=== PATIENT | female | born 1990 | race African-American/Black ===

== ENCOUNTER 2019-06-17 00:57 | Inpatient (IN) | payer OTHER ==
--- NOTE | 2019-06-17 04:39 | PN ---
L&D Outpatient: Visit - Reproductive Information Estimated Due Date: 06/22/19 Gestational Age: 39 Weeks and 2 Days : 1 Para: 0 - Reason for Visit Visit Reason: Pt reports ctx starting around 1730 and increasing in frequency and intensity over time. Denies LOF. Reports active FM. - Antepartal Records Antepartal Record: Reviewed, Complicated by: - HSV outbreak at 29 weeks, Rh negative, GBS bacteriuria - Patient History Patient History Significant: Yes Patient History Significant For: asthma, depression/ anxiety Review of Systems Constitutional: Uncomfortable CV Complaint: No Respiratory: Shortness of Breath: No Gastrointestinal: Normal Bowel Movement, Nausea Genitourinary: No Dysuria, No Bleeding, No Leaking Fluid Musculoskeletal: No Epigastric Pain, Back Pain, Contractions Neurological: No Headache, No Visual Changes Movement: Normal L&D Outpatient: Exam Vitals - Most Recent: Temp- 97.6, P-81, R-20, BP-130/70 - Cervical Exam Cervical Exam: 1-2cm/ 80%/ -2/ vtx/ soft - Abdominal Exam Abdomen Exam: Non-Tender, Fundal Height Consistent with Dates - Membranes Membrane Status: Intact - Ultrasound/Biophysical Profile Ultrasound Status: Not Done EFM Findings - External Monitor Findings Baseline Heart Rate: 140 External Monitor Findings: Accelerations Present, Variability Moderate, Baseline Stable Contractions: Regular, Mild, Moderate, 45-90 Seconds Contraction Frequency: 2-4 minutes L&D Outpatient: Asses/Plan Assessment: 28 year old at 39 2/7 weeks gestation in early vs prodromal labor. No evidence of acidemia, membranes intact. Hx GBS bacteriuria. - Discharge Diagnosis Discharge Diagnosis: Supervision-Normal Preg Plan: Continue Observation - Pt appears to be in labor, but has not made a lot of cervical change yet. Will recheck in a couple hours or as needed, defer admission and initiation of GBS prophylaxis until more active labor.
--- NOTE | 2019-06-17 08:12 | PN ---
Progress Note - Progress Note Date of Service: 06/17/19 SOAP: Subjective: Pt remains uncomfortable with ctx, fatigued, resting in between. Plane Captain, sibling , and sibling's children with them. Objective: FHR: 145 by doppler UCs: 3-5 minutes Cervix: 2cm/ 80%/ -2 Assessment: Pt still in early labor. No evidence of acidemia. Plan: Offered pt option to discharge home to await active labor or to reevaluate in 2 hours. Pt prefers to reevaluate in 2 hours.
--- NOTE | 2019-06-17 10:06 | HP ---
General Information - Reason for Visit Contractions - General Information Maternal Age: 28 Grav: 1 Para: 0 SAB: 0 IEA: 0 Estimated Due Date: 06/22/19 Determined By: LMP Gestational Age in Weeks/Days: 39 3/7 Maternal Blood Type and Rh: A Negative - Results this Serology/RPR Result: Non-Reactive Rubella Result: Immune HBsAg Result: Negative HIV Result: Negative GBS Culture Result: Positive Past Medical History Delivery History: See Records Delivery History Comment: no prior deliveries Pertinent Past Medical History: See Records Past Medical History Comment: Asthma, Depression/Anxiety Pertinent Past Surgical History: See Records Past Surgical History Comment: [place] tooth extraction Pertinent Family History: Non-Contributory - Antepartal Records Antepartal Records: Reviewed, Complicated by: - Rh negative status, HSV outbreak at 29 weeks, GBS bacteriuria Review of Systems Constitutional: Uncomfortable CV Complaint: No Respiratory: Shortness of Breath: No Gastrointestinal: Nausea Genitourinary: No Dysuria, No Bleeding, No Leaking Fluid Musculoskeletal: No Epigastric Pain, Contractions Neurological: No Headache, No Visual Changes Movement: Normal Exam Allergies/Adverse Reactions: Allergies No Known Allergies Allergy (Verified 06/17/19 02:01) B/P: 125/70, P: 87, R: 17, T: 98.0 - Measurements Height: 5 ft 7 in Weight: 222 lb Weight in lbs: [id number] Body Mass Index (BMI): 34.7 Pre- Weight: 175 lb Weight Gained This : 47 lbs and 0 ozs - Exam Breast: Breast Exam Deferred CVA: No CVA Tenderness Extremities: No Edema Heart: Normal Rhythm/Heart Sounds HEENT: No Significant Findings Lungs: Clear Bilaterally Reflexes: DTR 2+ - Abdominal Exam Abdomen Exam: Non-Tender, Fundal Height Consistent with Dates Targeted Exam Findings See L&D Outpatient Visit Provider Note for Findings: Yes Estimated Weight: 7.5 lbs by venkata Cervical Exam: 2cm Presenting Part: Vertex Membrane Status: Intact Bleeding/Discharge: None EFM Findings - External Monitor Findings Baseline Heart Rate: 140 External Monitor Findings: Accelerations Present, No Pattern of Variable or Late Decelerations, Variability Moderate, Baseline Stable Contractions: Regular, Moderate, 45-90 Seconds Contraction Frequency: 3-5 min Assessment/Plan - Assessment A: IUP at 39 4/7 weeks No evidence of metabolic acidemia GBS positive Early labor P: Admit to inpatient Begin GBS prophylaxis with PCN when in active labor Continue with comfort measures and position changes Reassess PRN Anticipate SVB - Obstetrical Risk Factors Obstetrical Risk Factors: GBS Positive - Plan Plan: Antibiotic Prophylaxis, Admit - Anticipate Vaginal Delivery - Date/Time of Admission Date of Admission: 06/17/19 Time of Admission: 10:00
[2019-06-17] MEDS ORDERED: Buffered Lidocaine 1% SYRIN* 1 ML/SYRINGE INTRADERM ONE (10:09)
[2019-06-17] MEDS ORDERED: Lactated Ringers 1000 ML Bag* 1,000 ML IV ONE (10:09)
[2019-06-17] MEDS ORDERED: Penicillin G Potassium IV* 5,000,000 UNITS in NS 0.9% 100 ML* 100 ML IVPB ONE (10:09)
[2019-06-17] MEDS ORDERED: Lactated Ringers 1000 ML Bag* 1,000 ML IV SCH ×2 (11:00→23:45)
[2019-06-17 12:04] LABS: ABS Lymphocytes 1.4 10^3/ul (1.0-4.8); ABS Monocytes 0.7 10^3/ul (0-0.8); ABS Neutrophils 9.6 10^3/ul (1.5-7.7); Hematocrit 35 % (35-47); Hemoglobin 11.6 g/dL (12.0-16.0); Lymphocyte % 11.8 %; Mean Corpuscular HGB Conc 34 g/dL (31-36); Mean Corpuscular Hemoglobin 29 pg (27-31); Mean Corpuscular Volume 87 fL (80-97); Mean Platelet Volume 9.4 fL (7.4-10.4); Platelet Count 253 10^3/uL (150-450); Red Blood Count 3.99 10^6 /uL (3.70-4.87); Red Cell Distribution Width 15 % (10-15); White Blood Count 11.8 10^3/uL (3.5-10.8)
--- NOTE | 2019-06-17 14:48 | PN ---
Progress Note - Progress Note Date of Service: 06/17/19 Note: S: Feeling exhausted, vocalizing with UCs. Jitterbug Operator and sibling at bedside for support O: B/P: 128/70, P: 83, R: 17, T: 98.0 FHR: 140s by intermittent auscultation UCs: q 3-5 min by palpation, moderate A: IUP at 39 2/7 weeks No evidence of metabolic acidemia Early labor P: Continue GBS prophylaxis per protocol Desires trial of Nitrous Oxide, will administer per policy Reassess PRN Anticipate SVB
[2019-06-17] MEDS: Penicillin G Potassium IV* 3,000,000 UNITS in NS 0.9% 100 ML* 100 ML IVPB SCH ×2 (15:17→19:55)
--- NOTE | 2019-06-17 15:47 | PN ---
Progress Note - Progress Note Date of Service: 06/17/19 Note: Quick note: This multifold operator was informed by neonatology that we must not delay clamping of the umbilical cord past delivery of the placenta. Discussed this decision with the patient and they are saddened but accepting and agree. Reviewed delivery of the placenta typically occurs within 5-30 minutes of .
[2019-06-17 19:28] LABS: Urine Benzodiazepine Screen None Detected (None Detect); Urine Opiates Screen None Detected (None Detect)
[2019-06-17] MEDS ORDERED: Oxytocin in LR* 20 UNITS/1,000 ML BAG IVPB SCH (23:45)
[2019-06-17] MEDS ORDERED: Oxytocin in LR* 20 UNITS/1,000 ML BAG IVPB ONE (23:51)
[2019-06-17] MEDS ORDERED: Acetaminophen TAB* 325 MG PO PRN (23:56)
[2019-06-17] MEDS ORDERED: Glycerin ADULT SUPP PR PRN (23:56)
[2019-06-17] MEDS ORDERED: RHO D Immune Globulin (HUMAN)* 300 MCG = 1,500 I.U. INJ IM ONE (23:56)
[2019-06-17] MEDS ORDERED: Dibucaine 1% 28.35 GM TUBE PR PRN (23:56)
[2019-06-17] MEDS ORDERED: Witch Hazel PAD* JAR TOPICAL PRN (23:56)
--- NOTE | 2019-06-18 00:16 | PROCNOTE ---
[facility] OB: Delivery Note - Delivery A Date of : 06/18/19 Time of : 23:26 [place] Sex: Male Score 1 Minute: 8 Score 5 Minutes: 9 Gestational Age in Weeks and Days at Delivery: 39 Weeks and 3 Days Delivery Method: Spontaneous Vaginal Labor: Spontaneous Did Patient attempt ?: N/A, No Previous Amniotic Fluid: Clear Estimated Blood Loss: 400 Anesthesia/Analgesia: Nitrous-Labor - briefly used nitrous early in labor Delivered By: Brisa Shah - Nursery Level of Nursery: Regular/Bedside - Perineum Perineal Injury: Perineal Laceration, 1st Degree Perineal Injury Comment: hemostatic Perineal Repair: None - Events Delivery Events of Note: Full Course of Antibiotics - for GBS prophylaxis, Post- Bleeding - Meds Given - Risk for Falls Delivered OB Patient- Risk for Falls: Heavy Bleeding Fall Risk: Patient is at High Risk for Falls - Additional Delivery Notes Additional Delivery Notes: at 39 2/7 weeks experienced SROM to clear fluid, progressed to complete and complete. Began pushing spontaneously at 2142 with good maternal effort. Forebag noted. Slow controlled delivery of head OA to SAULO at 2126, forebag ruptured with delivery of shoulders and baby somersaulted through loose nuchal x 1. Infant delivered to maternal abdomen, dried and stimulated. Spontaneous cry, HR >110, Apgars 8 and 9. Spontaneous frank placenta at 2339, membranes appeared complete. Fundus firm with massage. Cord clamped x 2 and cut by patient's niece. Perineum and vagina carefully inspected, first degree laceration noted, hemostatic and pt declined repair. Initial EBL = 400 cc, additional 200 cc clots expressed by nurse immediately . Parent and infant stable at time of note, weight pending for skin to skin, feeding plan is breast.
[2019-06-18] MEDS ORDERED: Methylergonovine INJ* 0.2 MG/ML 1ML AMP IM ONE (00:35)
[2019-06-18 06:55] LABS: Hematocrit 28 % (35-47); Hemoglobin 9.4 g/dL (12.0-16.0); Mean Corpuscular HGB Conc 33 g/dL (31-36); Mean Corpuscular Hemoglobin 29 pg (27-31); Mean Corpuscular Volume 88 fL (80-97); Mean Platelet Volume 8.5 fL (7.4-10.4); Platelet Count 213 10^3/uL (150-450); Red Blood Count 3.19 10^6 /uL (3.70-4.87); Red Cell Distribution Width 15 % (10-15); White Blood Count 16.9 10^3/uL (3.5-10.8)
[2019-06-18 07:15] LABS: ABS Basophils 0.1 10^3/ul (0-0.2); ABS Lymphocytes 1.6 10^3/ul (1.0-4.8); ABS Monocytes 1.9 10^3/ul (0-0.8); ABS Neutrophils 13.3 10^3/ul (1.5-7.7); Lymphocyte % 9.4 %
[2019-06-18] MEDS: Ibuprofen TAB* 600 MG PO SCH ×3 (07:37→17:45)
[2019-06-18] MEDS ORDERED: Simethicone TAB* 80 MG TAB.CHEW PO SCH (08:30)
[2019-06-18] MEDS: Docusate CAP* 100 MG PO SCH (14:12)
[2019-06-18] MEDS: Ferrous Gluconate TAB* 324 MG TAB PO SCH (14:12)
[2019-06-19] MEDS: Docusate CAP* 100 MG PO SCH (16:01)
[2019-06-19] MEDS: Ibuprofen TAB* 600 MG PO SCH ×2 (16:01→17:45)
[2019-06-19] MEDS: Ferrous Gluconate TAB* 324 MG TAB PO SCH (16:01)
[2019-06-20] MEDS: Ibuprofen TAB* 600 MG PO SCH ×3 (01:49→11:17)
[2019-06-20 08:01] VITALS: BP 113/75
[2019-06-20] MEDS: Docusate CAP* 100 MG PO SCH (11:17)
[2019-06-20] MEDS: Ferrous Gluconate TAB* 324 MG TAB PO SCH (11:17)
== END 2019-06-20 11:50 | disposition home or self-care (01) | DRG 560 ==
LOC: MCHOBOUT 00:57 → MCHOB 10:04
PROVIDERS: ADMIT Midwife; ATTEND Midwife
PROC: 10E0XZZ Delivery of Products of Conception, External Approach (ICD-10-PCS; principal; 2019-06-18)
PROC: 4A1HXCZ Monitoring of Products of Conception, Cardiac Rate, External Approach (ICD-10-PCS; 2019-06-18)
DX: O99.824 Streptococcus B carrier state complicating childbirth (principal); O98.52 Other viral diseases complicating childbirth; Z37.0 Single live birth; O69.81X0 Labor and delivery complicated by cord around neck, without compression, not applicable or unspecified; B00.9 Herpesviral infection, unspecified; O72.1 Other immediate postpartum hemorrhage; O75.81 Maternal exhaustion complicating labor and delivery; O70.0 First degree perineal laceration during delivery; Z3A.39 39 weeks gestation of pregnancy
CPT/HCPCS: 36415; 80307; 85025; 85461; 86850; 86870; 86880; 86900; 86901; A9270-GY; J2540